=== PATIENT | female | born 1935 ===

== ENCOUNTER 2017-11-16 10:08 | Outpatient (CLI) | payer OTHER | END 2017-11-16 10:17 | disposition home or self-care (01) | LOC: LAB 10:08 | DX: N18.3 Chronic kidney disease, stage 3 (moderate) (principal); I10 Essential (primary) hypertension; E78.2 Mixed hyperlipidemia; D63.8 Anemia in other chronic diseases classified elsewhere ==

== ENCOUNTER 2018-06-16 10:05 | Outpatient (CLI) | payer OTHER | END 2018-06-16 10:09 | disposition home or self-care (01) | LOC: MAMO-SONO 10:05 | DX: Z12.31 Encounter for screening mammogram for malignant neoplasm of breast (principal); Z87.898 Personal history of other specified conditions ==

== ENCOUNTER 2021-08-24 12:06 | Emergency (ER) | payer OTHER ==
[~2021-08-24] VITALS: Ht 160 cm; Wt 65.8 kg
[2021-08-24] MEDS ORDERED: HYDRALAZINE HCL50 MG PO (12:56)
[2021-08-24] MEDS ORDERED: TORSEMIDE20 MG PO (12:56)
[2021-08-24] MEDS ORDERED: PRAVASTATIN SOD40 MG PO (12:57)
[2021-08-24] MEDS ORDERED: COZAAR50 MG PO (12:57)
[2021-08-24] MEDS ORDERED: CORGARD20 M1 PO (12:57)
== END 2021-08-24 16:52 | disposition home or self-care (01) ==
LOC: ER 12:06
DX: S42.221A 2-part displaced fracture of surgical neck of right humerus, initial encounter for closed fracture (principal); W06.XXXA Fall from bed, initial encounter; Y93.89 Activity, other specified; Y92.013 Bedroom of single-family (private) house as the place of occurrence of the external cause; Y99.8 Other external cause status